=== PATIENT | female | born 1965 | race Two or more races ===

== ENCOUNTER 2018-01-13 09:51 | Inpatient (IN) | payer BC ==
[~2018-01-13] VITALS: Ht 172.7 cm; Wt 67.1 kg
[2018-01-13] MEDS ORDERED: ESOM40CA PO (11:05)
[2018-01-13] MEDS ORDERED: ONDANSETRON HCL/PF 4 MG/2 ML VIAL ONE (11:17)
[2018-01-13] MEDS ORDERED: MORPHINE SULFATE INJ 4 MG/ML DISP.SYRIN ONE ×2 (11:17→13:03)
[2018-01-13 11:27] LABS: APPEARANCE,URINE Clear (CLEAR); BILIRUBIN,URINE Negative (NEGATIVE); BLOOD, URINE Trace-intact Ery/uL (NEGATIVE); COLOR,URINE Yellow (YELLOW); KETONES,URINE >=160 (NEGATIVE); LEUKOCYTE ESTERASE ,URINE Negative (NEGATIVE); NITRITE, URINE Negative (NEGATIVE); PH,URINE 7.5 (5.0-8.0); PROTEIN,URINE Trace mg/dl (NEGATIVE); UGLUCOSE Negative (NEGATIVE); UROBILINOGEN,URINE 0.2 EU/dL (0.2)
[2018-01-13] MEDS ORDERED: IV NS 0.9% 1,000 ML BAG IV ONE (11:30)
[2018-01-13] MEDS ORDERED: MORPHINE SULFATE INJ 2 MG/ML DISP.SYRIN IV ONE ×2 (11:30→13:00)
[2018-01-13] MEDS ORDERED: ONDANSETRON HCL/PF 4 MG/2 ML VIAL IVP ONE (11:30)
[2018-01-13 11:33] LABS: BASOPHILS # (AUTO) 0.7 /CMM (0.0-0.2); BASOPHILS % (AUTO) 3.7 % (0.0-2.0); EOSINOPHILS % (AUTO) 0.1 % (0.0-6.0); HEMATOCRIT 45 % (33-45); HEMOGLOBIN 14.9 g/dL (11.5-14.8); LYMPHOCYTES # (AUTO) 0.9 /CMM (0.8-4.8); LYMPHOCYTES % (AUTO) 4.7 % (20.0-44.0); MEAN CORPUSCULAR HEMOGLOBIN 30 PG (26.0-33.0); MEAN CORPUSCULAR HGB CONC 34 g/dl (31.0-36.0); MEAN CORPUSCULAR VOLUME 91 fL (82-100); MONOCYTES # (AUTO) 0.6 /CMM (0.1-1.30); MONOCYTES % (AUTO) 3.2 % (2.0-12.0); NEUTROPHILS # (AUTO) 17.1 /CMM (1.8-8.9); NEUTROPHILS % (AUTO) 88.3 % (43.0-81.0); PLATELET COUNT (AUTO) 384 /CMM (150-450); RDW COEFFICIENT OF VARIATION 12.2 (11.5-15.0); RED BLOOD CELL COUNT(AUTO) 4.91 MIL/uL (4.0-5.2); WHITE BLOOD COUNT (AUTO) 19.3 K/uL (4.3-11.0)
--- NOTE | 2018-01-13 11:38 | NUR ---
PT BIB SELF C/O EPIGASTRIC PAIN WITH NAUSEA SINCE 229, NO RELIEF WITH WILL ZELTZER AND PEPTO BISMOL. PT SEEN & EVAL'D BY TITI HERNANDES. DENIES SOB, DIZZINESS, SKIN WARM DRY & INTACT. MEDICATED FOR PAIN, NAD NOTED @ THIS TIME.
[2018-01-13 11:39] LABS: BACTERIA,URINE Few /HPF (None Seen); WBC,URINE 0-3 /HPF (0-3)
[2018-01-13 11:40] LABS: MUCUS,URINE Few /LPF (None Seen); SQUAMOUS EPITHELIAL CELL,UR Few /HPF (None Seen)
[2018-01-13 11:42] LABS: CALCIUM, SERUM 8.6 mg/dL (8.5-10.1); CREATININE 0.6 mg/dL (0.6-1.3); POTASSIUM 3.8 mmol/L (3.5-5.1)
[2018-01-13 11:46] LABS: INR 0.9 (0.85-1.15)
[2018-01-13 11:48] LABS: BILIRUBIN,DIRECT 0.1 mg/dL (0.0-0.2); BILIRUBIN,TOTAL 0.8 mg/dL (0.2-1.0); TOTAL PROTEIN, SERUM 7.7 g/dL (6.4-8.2)
--- NOTE | 2018-01-13 11:50 | NUR ---
PT HAD INSTANT RELIEF, ABD PAIN 09/22 & [facility]. PT USING CELLPHONE, NAD NOTED @ THIS TIME.
--- NOTE | 2018-01-13 12:09 | NUR ---
PT TO CT VIA WHEELCHAIR.
--- NOTE | 2018-01-13 12:34 | NUR ---
PT BACK FROM CT SCAN, TITI HERNANDES @ BS.
[2018-01-13] MEDS ORDERED: CEFOXITIN 2 G in IV D5W 50 ML IV STA (12:40)
--- NOTE | 2018-01-13 12:43 | NUR ---
CALLED [facility] FOR PANEL CALL AND DR BERMAN WAS PAGED.
--- NOTE | 2018-01-13 12:44 | NUR ---
PAGED DR HENAO - SURGERY CAFE HELPER.
--- NOTE | 2018-01-13 12:45 | NUR ---
CALLED NURSING FACING END TRIMMER AND REQUESTED A MED SURG BED
--- NOTE | 2018-01-13 13:13 | NUR ---
ASSIGNED TO MED SURG RM#: [id number], DX: APPENDICITIS, AND ACCEPTING: DR BERMAN
--- NOTE | 2018-01-13 13:57 | NUR ---
PT STABLE, ABD PAIN 07/25 & [facility]. DENIES CP, SOB, DIZZINESS, N/V @ THIS TIME. DR. BERMAN @ BS FOR EVAL.
[2018-01-13] MEDS ORDERED: MAG HYDROX/AL HYDROX/SIMETH 30 ML UDC PO PRN (14:00)
[2018-01-13] MEDS ORDERED: Z GUARD REMEDY 2 OZ OINT TP PRN (14:00)
[2018-01-13] MEDS ORDERED: ONDANSETRON HCL/PF 4 MG/2 ML VIAL IVP PRN (14:00)
[2018-01-13] MEDS ORDERED: MAGNESIUM HYDROXIDE 30 ML UDC PO PRN (14:00)
[2018-01-13] MEDS ORDERED: HYDROCODONE/APAP 5/325MG 1 EACH TABLET PO PRN (14:00)
--- NOTE | 2018-01-13 14:30 | NUR ---
RN NOTES RECEIVED PATIENT FROM E.R. DEPARTMENT, ALERT AND ORIENTED X4, C/O EPIGASTRIC PAIN 11/22, PATIENT JUST RECEIVED MORPHINE IN THE ER. PATIENT'S SKIN ASSESSMENT COMPLETED, SKIN DRY AND INTACT, INDEPENDENT WITH MOBILITY, RECEIVED ORDERS FROM DR. BERMAN, PATIENT IS NPO EXCEPT MEDICATIONS. NEEDS ATTENDED AND MET, ORIENTED TO FACILITY, CALL LIGHT WITHIN REACH, WILL CONTINUE TO MONITOR.
[2018-01-13] MEDS ORDERED: MORPHINE SULFATE INJ 2 MG/ML DISP.SYRIN IV PRN (15:30)
[2018-01-13 16:00] VITALS: BP 154/74
--- NOTE | 2018-01-13 18:00 | NUR ---
RN NOTES PATIENT REQUESTED FOR ICE CHIPS PATIENT C/O BEING THIRSTY, GIVEN 1/2 CUP OF ICE CHIPS, JEREL DOUBLE CUT SAWYER MADE AWARE. CONSENTS SIGNED BY PATIENT. PER JEREL PATIENT HAS NO SCHEDULE FOR SURGERY AT THIS TIME AND SHE'S STILL WORKING ON IT.
--- NOTE | 2018-01-13 18:48 | NUR ---
RN NOTES RECEIVED A CALL FROM VIN ROCKWELL, PER VIN, SURGERY WILL BE SCHEDULED TOMORROW AM POSSIBLY AT 7AM. PATIENT CAN EAT PREFERRED DIET, AND NPO AFTER MIDNIGHT. PATIENT INFORMED. NEEDS ATTENDED, CALL LIGHT WITHIN REACH, WILL ENDORSE TO HOUSEHOLD APPLIANCES SALESPERSON FOR YIFAN.
--- NOTE | 2018-01-13 19:30 | NUR ---
MS RN OPENING NOTE Patient was seen sitting up in bed AAOx4, breathing on RA with no SOB, and no signs of acute distress. Patient diagnosed with appendicitis and was educated that surgery is planned for tomorrow morning at approximately 07:30 am. Patient will be NPO after midnight. Patient verbalizes understanding and all questions have been addressed. Consent forms were signed during day shift hours. Patient reports 4/10 tolerable pain and does not request any pain medication at this time. SL 20g IV is in the right AC intact and patent. Bed is low/locked, two side rails up, and call delgado within reach. Patient's and mother are at the bedside. Patient has no immediate needs at this time. Will continue to monitor.
[2018-01-13] MEDS: LEVOFLOXACIN 750 MG /D5W 150ML 750 MG in PREMIX 1 EA IV SCH (19:56)
[2018-01-13 20:00] VITALS: BP 118/76
--- NOTE | 2018-01-13 21:00 | NUR ---
MS RN NOTE - Morphine, Zofran Patient reported increased abdominal pain 8/10 and mild nausea and requested medication for both. 2mg IV morphine and 4mg IV Zofran was administered per orders. Will continue to monitor.
[2018-01-13] MEDS: METRONIDAZOLE 500MG/ NS 100ML 500 MG in PREMIX 1 EA IV SCH (22:07)
[2018-01-14] VITALS (13 sets, daily range): BP systolic 100–136; BP diastolic 60–84
[2018-01-14] MEDS: ZOLPIDEM TARTRATE 5 MG TABLET PO PRN ×2 (00:35→21:23)
--- NOTE | 2018-01-14 00:35 | NUR ---
MS RN NOTE - Wayne Patient stated she was anxious and restless due to anticipated surgery. Patient asked for sleeping aid. 5mg PO Ambien was given with one small sip of water. Patient is otherwise NPO after midnight and all fluids/foods have been removed from room. Patient verbalizes understanding. Will continue to monitor.
[2018-01-14] MEDS: METRONIDAZOLE 500MG/ NS 100ML 500 MG in PREMIX 1 EA IV SCH ×3 (05:42→21:23)
[2018-01-14 07:05] LABS: BASOPHILS % (AUTO) 0.1 % (0.0-2.0); HEMATOCRIT 43 % (33-45); HEMOGLOBIN 14.3 g/dL (11.5-14.8); LYMPHOCYTES # (AUTO) 0.4 /CMM (0.8-4.8); LYMPHOCYTES % (AUTO) 3.1 % (20.0-44.0); MEAN CORPUSCULAR HEMOGLOBIN 31 PG (26.0-33.0); MEAN CORPUSCULAR HGB CONC 34 g/dl (31.0-36.0); MEAN CORPUSCULAR VOLUME 94 fL (82-100); MONOCYTES # (AUTO) 0.3 /CMM (0.1-1.30); MONOCYTES % (AUTO) 1.9 % (2.0-12.0); NEUTROPHILS # (AUTO) 13.5 /CMM (1.8-8.9); NEUTROPHILS % (AUTO) 94.9 % (43.0-81.0); PLATELET COUNT (AUTO) 278 /CMM (150-450); RDW COEFFICIENT OF VARIATION 13.3 (11.5-15.0); RED BLOOD CELL COUNT(AUTO) 4.56 MIL/uL (4.0-5.2); WHITE BLOOD COUNT (AUTO) 14.2 K/uL (4.3-11.0)
--- NOTE | 2018-01-14 07:15 | NUR ---
MS RN NOTES PATIENT RESTING INSIDE ROOM, AWAKE, ALERT AND ORIENTED, VERBALLY RESPONSIVE AND RESPONDS TO VERBAL AND TACTILE STIMULI. BREATHING EVEN AND UNLABORED. NO SOB OR ACUTE DISTRESS NOTED. IV INTACT AND PATENT, NO SWELLING OR BLEEDING NOTED ON SITE. PATIENT NPO SINCE MIDNIGHT, FOR SURGERY THIS AM. PATIENT LEFT UNIT AT 0710 VIA GURNEY, TO PROCEED TO OR.
[2018-01-14] MEDS ORDERED: ROCURONIUM BROMIDE 50 MG/5 ML ONE (07:19)
[2018-01-14] MEDS ORDERED: SUCCINYLCHOLINE CHLORIDE 20 MG/ML VIAL ONE (07:19)
[2018-01-14] MEDS ORDERED: HYDROMORPHONE INJ 2 MG/ML DISP.SYRIN ONE (07:19)
[2018-01-14] MEDS ORDERED: MIDAZOLAM HCL 2 MG/2ML VIAL ONE (07:19)
[2018-01-14] MEDS ORDERED: LIDOCAINE HCL/PF 1% 30 ML SDV ONE (07:24)
[2018-01-14] MEDS ORDERED: LIDOCAINE 1%-EPI 1:100,000 20 ML VIAL ONE (07:25)
[2018-01-14] MEDS ORDERED: BUPIVACAINE MPF 0.75% 30 ML VIAL ONE (07:25)
--- NOTE | 2018-01-14 07:46 | NUR ---
MS RN CLOSING NOTE Patient left for surgery at approximately 0700. Surgery checklist was completed as well as all surgical consents. Patient left in stable condition with vital signs WNL. Patient remained NPO after midnight. She is AAOx4, breathes on RA with no SOB. IV in right AC is intact and patent. All patient needs were addressed overnight. Patient care endorsed to day shift RN.
[2018-01-14 07:56] LABS: CALCIUM, SERUM 8.4 mg/dL (8.5-10.1); CREATININE 0.7 mg/dL (0.6-1.3); MAGNESIUM 1.9 mg/dL (1.8-2.4); PHOSPHORUS 2.6 mg/dL (2.5-4.9); POTASSIUM 3.6 mmol/L (3.5-5.1)
[2018-01-14] MEDS: ACETAMINOPHEN 325 MG TABLET PO PRN (14:20)
--- NOTE | 2018-01-14 16:58 | NUR ---
Patient lives locally with family. She is ambulatory and independent with adl's. Has no DME or homehealth reported. He pcp is Dr. Joaquin Ho. Family will provide ride when discharge. Addendum: 01/14/18 at 1658 by VAISHALI MIRELES RN Amended: Links added.
[2018-01-14] MEDS: LEVOFLOXACIN 750 MG /D5W 150ML 750 MG in PREMIX 1 EA IV SCH (17:21)
--- NOTE | 2018-01-14 18:25 | NUR ---
MS RN NOTES PATIENT RESTING INSIDE ROOM, AWAKE, ALERT AND ORIENTED X 4, VERBALLY RESPONSIVE AND RESPONDS TO VERBAL AND TACTILE STIMULI. BREATHING EVEN AND UNLABORED, NO CHANGES IN LOC NOTED AT THIS TIME. PATIENT CALM AND RELAXED. PATIENT S/P LAP APPENDECTOMY. DVT PUMPS ON. PATIENT ALSO AMBULATORY, AMBULATES HALLWAY WITH WALKER. IV INTACT AND PATENT, NO SWELLING OR BLEEDING NOTED ON SITE. WILL ENDORSE TO INCOMING SHIFT FOR YIFAN. BED LOCKED AND IN LOW POSITION. BILATERAL UPPER SIDE RAILS UP AND LOCKED. CALL LIGHT WITHIN EASY REACH
--- NOTE | 2018-01-14 19:00 | NUR ---
MS RN OPENING NOTE RECEIVE PATIENT AWAKE IN BED, A/O X 4,NO SOB OR DISTRESS NOTED, CALL LIGHT WITHIN REACH. SAFETY MEASURES IMPLEMENTED. WILL CONTINUE TO MONITOR THROUGHOUT SHIFT.
[2018-01-15] MEDS: METRONIDAZOLE 500MG/ NS 100ML 500 MG in PREMIX 1 EA IV SCH ×2 (04:27→12:17)
--- NOTE | 2018-01-15 06:18 | NUR ---
MS RN CLOSING NOTES PT COMFORTABLY ASLEEP AND EASILY AWAKEN, STABLE CONDITION. RESPIRATION EVEN AND UNLABORED. 02 SAT 99%R.A, KEPT CLEAN AND DRY AND COMFORTABLE, ALL NURSING CARE RENDERED. NEEDS ATTENDED AND ANTICIPATED,NOT IN DISTRESS, NO FACIAL GRIMACING NOTED. NO C/O OF PAIN, ON LOW BED AT ALL TIMES TO ENSURE SAFETY. SAFE HAZARD FREE ENVIRONMENT PROVIDED. CALL LIGHT WITHIN EASY TO REACH. WILL ENDORSE NEXT SHIFT CONTINUITY OF CARE.
[2018-01-15 07:07] LABS: BASOPHILS % (AUTO) 0.5 % (0.0-2.0); EOSINOPHILS % (AUTO) 0.6 % (0.0-6.0); HEMATOCRIT 38 % (33-45); HEMOGLOBIN 12.7 g/dL (11.5-14.8); LYMPHOCYTES # (AUTO) 0.8 /CMM (0.8-4.8); LYMPHOCYTES % (AUTO) 7.7 % (20.0-44.0); MEAN CORPUSCULAR HEMOGLOBIN 32 PG (26.0-33.0); MEAN CORPUSCULAR HGB CONC 34 g/dl (31.0-36.0); MEAN CORPUSCULAR VOLUME 93 fL (82-100); MONOCYTES # (AUTO) 0.8 /CMM (0.1-1.30); MONOCYTES % (AUTO) 8.1 % (2.0-12.0); NEUTROPHILS # (AUTO) 8.4 /CMM (1.8-8.9); NEUTROPHILS % (AUTO) 83.1 % (43.0-81.0); PLATELET COUNT (AUTO) 290 /CMM (150-450); RDW COEFFICIENT OF VARIATION 13.3 (11.5-15.0); RED BLOOD CELL COUNT(AUTO) 4.01 MIL/uL (4.0-5.2); WHITE BLOOD COUNT (AUTO) 10.1 K/uL (4.3-11.0)
--- NOTE | 2018-01-15 07:15 | NUR ---
MS RN NOTES PATIENT IN BED ALERT ORIENTED X 4. NO ACUTE DISTRESS NOTED. BREATHING UNLABORED. NO SOB NOTED. IV ACCESS PATENT AND INTACT, NO REDNESS OR SWELLING NOTED. SAFETY MEASURES IN PLACE. CALL LIGHT WITHIN REACH . WILL CONTINUE TO MONITOR ACCORDINGLY.
[2018-01-15 07:34] LABS: CALCIUM, SERUM 8.2 mg/dL (8.5-10.1); CREATININE 0.7 mg/dL (0.6-1.3); POTASSIUM 3.8 mmol/L (3.5-5.1)
[2018-01-15 08:00] VITALS: BP 121/78
[2018-01-15] MEDS: ACETAMINOPHEN 325 MG TABLET PO PRN (08:02)
--- NOTE | 2018-01-15 08:51 | NUR ---
MS RN NOTES PATIENT TOLERATING CURRENT DIET WELL, ADVANCED DIET TO FULL LIQUID. AWARE.
--- NOTE | 2018-01-15 08:51 | NUR ---
MS RN NOTES SEEN AND EVALUATED BY DR HAYLEE BERMAN WITH NEW ORDERS MADE, NOTED AND CARRIED OUT.
[2018-01-15] MEDS ORDERED: DOCU-141 PO (08:53)
[2018-01-15] MEDS ORDERED: HYDR-552 PO (08:53)
--- NOTE | 2018-01-15 14:45 | NUR ---
MS SAND BLASTER NOTES PATIENT DISCHARGED HOME WITH STABLE VITAL SIGNS, NO ACUTE DISTRESS NOTED. BREATHING UNLABORED. NO SOB NOTED. DENIED ANY PAIN DISCHARGE INSTRUCTIONS GIVEN TO THE PATIENT INCLUDING NEW PRESCRIPTIONS AND FOLLOW UP APPOINTMENT, VERBALIZED UNDERSTANDING. ALL BELONGINGS ACCOUNTED FOR. IV ACCESS REMOVED, NO REDNESS, NO BLEEDING OR SWELLING NOTED. NEEDS ATTENDED AND ANTICIPATED. DUE MEDICATIONS GIVEN, NO ASE NOTED. WHEELED TO THE LOBBY, ASSISTED TO A PRIVATE CAR WITH MOTHER.
== END 2018-01-15 14:45 | disposition home or self-care (01) | DRG 343 ==
LOC: ER 09:53 → MED 13:25
PROVIDERS: ADMIT Family Medicine; ATTEND Family Medicine
PROC: 0DTJ4ZZ Resection of Appendix, Percutaneous Endoscopic Approach (ICD-10-PCS; principal; 2018-01-14 07:30)
DX: K35.80 Unspecified acute appendicitis (principal); D25.9 Leiomyoma of uterus, unspecified; Z87.891 Personal history of nicotine dependence; R73.9 Hyperglycemia, unspecified; Z98.82 Breast implant status; Z88.0 Allergy status to penicillin; D72.829 Elevated white blood cell count, unspecified; K43.9 Ventral hernia without obstruction or gangrene
CPT/HCPCS: 36415; 71045-TC; 76642-TC; 80048-TC; 80061-TC; 80076-TC; 81000-TC; 83690-TC; 83735-TC; 84100-TC; 84703-TC; 85025-TC; 85730-TC; 87081-TC; 88304-TC; A4216; A4606; J0330; J0694; J1170; J1956; J2250; J2270; J2405; J3490; J7030; J7040; J7060; Z7610